=== PATIENT | female | born 1950 ===

== ENCOUNTER 2018-02-22 10:15 | Outpatient (CLI) | payer OTHER | END 2018-02-22 15:00 | disposition home or self-care (01) | LOC: MAMO-SONO 10:15 | DX: Z12.31 Encounter for screening mammogram for malignant neoplasm of breast (principal); Z87.898 Personal history of other specified conditions; Z12.39 Encounter for other screening for malignant neoplasm of breast ==

== ENCOUNTER 2022-10-31 06:31 | Day surgery (SDC) | payer OTHER ==
[~2022-10-31] VITALS: Ht 154.9 cm; Wt 58.5 kg
[~2022-10-31 06:31] MED LIST: ANASTROZOLE1 MG PO
== END 2022-10-31 19:20 | disposition home or self-care (01) ==
LOC: CIR.AMB 06:31
PROVIDERS: ATTEND Surgery
DX: D05.11 Intraductal carcinoma in situ of right breast (principal); R59.0 Localized enlarged lymph nodes; R92.1 Mammographic calcification found on diagnostic imaging of breast; N64.1 Fat necrosis of breast; Z88.6 Allergy status to analgesic agent; Z20.822 Contact with and (suspected) exposure to COVID-19; I10 Essential (primary) hypertension; F17.210 Nicotine dependence, cigarettes, uncomplicated

== ENCOUNTER → 2025-08-03 11:24 | Outpatient (CLI) | payer OTHER | END | disposition home or self-care (01) | LOC: NUCLEAR 11:24 | PROVIDERS: ATTEND Internal Medicine | DX: M81.8 Other osteoporosis without current pathological fracture (principal); M81.0 Age-related osteoporosis without current pathological fracture ==